=== PATIENT | female | born 1965 | race Caucasian/White ===

== ENCOUNTER 2025-04-06 07:05 | Day surgery (SDC) | payer OTHER ==
[~2025-04-06] VITALS: Ht 154.9 cm; Wt 81.8 kg
[~2025-04-06 07:05] MED LIST: CeFAZolin 2 GM/DEXTROSE 50 ML IV ONE; RINGERS SOLUTION,LACTATED 1,000 ML IV ONE; SODIUM CHLORIDE 0.9% 1,000 ML IV ONE
[2025-04-06] MEDS ORDERED: IBUP600 PO (07:37)
[2025-04-06] MEDS ORDERED: GABA-1554 PO (07:37)
[2025-04-06] MEDS ORDERED: LEVO25TA9 PO (07:37)
[2025-04-06] MEDS ORDERED: ATOR40TA71 PO (07:37)
[2025-04-06 07:44] LABS: PLATELET COUNT (AUTO) 244 K/uL (150-450); RED BLOOD CELL COUNT(AUTO) 4.15 MIL/uL (4.00-5.20); RED CELL DISTRIBUTION WIDTH 13.6 % (11.5-14.5); WHITE BLOOD COUNT (AUTO) 8.2 K/uL (4.5-11.0)
[2025-04-06 07:50] LABS: CALCIUM, TOTAL 8.8 mg/dL (8.8-10.5); CREATININE 0.90 mg/dL (0.60-1.30); GLOMERULAR FILTR. RATE CALC > 60 mL/min (>60); GLUCOSE,RANDOM 91 mg/dL (70-110); SODIUM SERUM 142 mmol/L (136-145); UREA NITROGEN, BLOOD 18 mg/dL (7-18)
[2025-04-06] MEDS: RINGERS SOLUTION,LACTATED 1,000 ML IV ONE (08:08)
[2025-04-06] MEDS: CHLORHEXIDINE GLUCONATE 2% TOWELETTE [2'S/6'S] TP ONE (08:09)
[2025-04-06] MEDS: ETHYL ALCOHOL 62% ANTISEPTIC NASAL SANITIZER 0.6 ML AMPUL NASAL ONE (08:09)
[2025-04-06] MEDS ORDERED: BUPIVACAINE HCL 0.25% 50 ML VIAL ONE (08:10)
[2025-04-06] MEDS ORDERED: BUPIVACAINE HCL/PF 0.5% 30 ML VIAL ONE ×2 (08:10→08:13)
[2025-04-06] MEDS ORDERED: VANCOMYCIN HCL 1 GM VIAL ONE (08:20)
[2025-04-06] MEDS ORDERED: CeFAZolin 2 GM/DEXTROSE 50 ML IV ONE (08:30)
[2025-04-06] MEDS: BUPIVACAINE LIPOSOME/PF 1.3%-13.3MG/ML SUSP 20 ML VIAL INJ ONE (09:50)
[2025-04-06] MEDS: BUPIVACAINE HCL/PF 0.25% 30 ML VIAL ONE (09:50)
[2025-04-06] MEDS: MUPIROCIN CALCIUM 2% 22 GM OINTMENT ONE (10:05)
[2025-04-06] MEDS ORDERED: MIDAZOLAM HCL 2 MG/2 ML VIAL ONE (12:00)
[2025-04-06] MEDS ORDERED: FentaNYL CITRATE PF 100 MCG/2 ML VIAL ONE (12:00)
== END 2025-04-06 12:20 | disposition home or self-care (01) ==
LOC: SDS 07:05
PROVIDERS: ATTEND Neurological Surgery
DX: Z45.42 Encounter for adjustment and management of neurostimulator (principal); M54.50 Low back pain, unspecified; M54.16 Radiculopathy, lumbar region; G47.30 Sleep apnea, unspecified; F17.210 Nicotine dependence, cigarettes, uncomplicated; Z79.899 Other long term (current) drug therapy; E78.00 Pure hypercholesterolemia, unspecified; Z96.89 Presence of other specified functional implants; Z88.2 Allergy status to sulfonamides; Z98.890 Other specified postprocedural states; Z79.01 Long term (current) use of anticoagulants; M19.90 Unspecified osteoarthritis, unspecified site; Z98.51 Tubal ligation status; Z90.49 Acquired absence of other specified parts of digestive tract
CPT/HCPCS: 63688; 71045; 80048; 85025; 85610; 85730; 36415; 93005; 74018; J0666; J3490; J3010; J2250; J3373; J7120; J0690; Z7610